=== PATIENT | female | born 1940 | race Two or more races ===

== ENCOUNTER → 2018-01-21 | Outpatient (CLI) | payer OTHER, MEDICAID | END | disposition home or self-care (01) | LOC: Rad HDHVI 13:09 | PROVIDERS: ATTEND Internal Medicine Cardiovascular Disease | DX: I08.2 Rheumatic disorders of both aortic and tricuspid valves (principal); R06.02 Shortness of breath; Z86.79 Personal history of other diseases of the circulatory system | CPT/HCPCS: 93306 ==

== ENCOUNTER → 2019-04-21 | Outpatient (CLI) | payer OTHER, MEDICAID ==
[~2019-04-21] VITALS: Ht 162.6 cm; Wt 66.2 kg
[~2019-04-21] MED LIST: ADENOSINE 56 MG in GIVE UN-DILUTED 0 ML IV ONE; ADENOSINE 90 MG/30 ML INJ IV ONE
== END | disposition home or self-care (01) ==
LOC: Rad HDHVI 13:40
PROVIDERS: ATTEND Internal Medicine Cardiovascular Disease
DX: I25.10 Atherosclerotic heart disease of native coronary artery without angina pectoris (principal); I10 Essential (primary) hypertension
CPT/HCPCS: 78452; 93005; 96374; 96375; A9500; J0153

== ENCOUNTER → 2019-04-26 | Outpatient (CLI) | payer OTHER, MEDICAID | END | disposition home or self-care (01) | LOC: Rad HDHVI 08:17 | PROVIDERS: ATTEND Internal Medicine Cardiovascular Disease | DX: I08.3 Combined rheumatic disorders of mitral, aortic and tricuspid valves (principal); I48.91 Unspecified atrial fibrillation; R06.02 Shortness of breath | CPT/HCPCS: 93306; 93880 ==

== ENCOUNTER → 2020-12-04 | Outpatient (CLI) | payer OTHER, MEDICAID | END | disposition home or self-care (01) | LOC: Rad HDHVI 16:01 | PROVIDERS: ATTEND Internal Medicine Cardiovascular Disease | DX: R07.89 Other chest pain (principal); R06.02 Shortness of breath | CPT/HCPCS: 93306 ==

== ENCOUNTER → 2020-12-10 | Outpatient (CLI) | payer OTHER, MEDICAID ==
[~2020-12-10] VITALS: Ht 162.6 cm; Wt 68.0 kg
[~2020-12-10] MED LIST changes: -ADENOSINE 56 MG in GIVE UN-DILUTED 0 ML IV ONE; +ADENOSINE 57 MG in GIVE UN-DILUTED 0 ML IV ONE
== END | disposition home or self-care (01) ==
LOC: Rad HDHVI 08:21
PROVIDERS: ATTEND Internal Medicine Cardiovascular Disease
DX: I10 Essential (primary) hypertension (principal); J44.9 Chronic obstructive pulmonary disease, unspecified; R07.89 Other chest pain; Z82.49 Family history of ischemic heart disease and other diseases of the circulatory system
CPT/HCPCS: 78452; 93005; 96374; 96375; A9500; J0153

== ENCOUNTER 2025-07-13 20:08 | Emergency (ER) | payer OTHER, MEDICAID ==
[~2025-07-13] VITALS: Ht 162.6 cm; Wt 65.8 kg
--- NOTE | 2025-07-13 20:32 | ED.PDOC ---
HPI Comments 85-year-old male who came to ER for chest pains. Patient has history of hypertension, takes amlodipine 2.5 mg. About 1-1/2 hours ago, while relaxing at home, she developed midsternal chest pains, unprovoked, nonradiating, worse with deep breathing and movements. Patient denies any prior history of chest pains. Has no tearing chest discomfort. No recent fever, cough. Patient with a [facility], but was advised to go to the ER for further evaluation and management. 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 Hx Family History Family History: Reviewed,noncontributory to illness Social History Smoker: Non-Smoker Alcohol: Denies ETOH Use Drugs: Denies Drug Use Lives In: Home Constitutional: denies: chills, diaphoresis, fatigue, fever, malaise, sweats, weakness, others EENTM: denies: blurred vision, double vision, ear bleeding, ear discharge, ear drainage, ear pain, ear ringing, eye pain, eye redness, hearing loss, mouth pain, mouth swelling, nasal discharge, nose bleeding, nose congestion, nose pain, photophobia, tearing, throat pain, throat swelling, voice changes, others Respiratory: denies: cough, hemoptysis, orthopnea, SOB at rest, shortness of breath, SOB with excertion, stridor, wheezing, others Cardiovascular: reports: chest pain; denies: dizzy spells, diaphoresis, Dyspnea on exertion, edema, irregular heart beat, left arm pain, lightheadedness, pal pitations, PND, syncope, others Gastrointestinal: denies: abdomen distended, abdominal pain, blood streaked bowels, constipated, diarrhea, dysphagia, difficulty swallowing, hematemesis, melena, nausea, poor appetite, poor fluid intake, rectal bleeding, rectal pain, vomiting, others Genitourinary: denies: abnormal vagina bleeding, burning, dyspareunia, dysuria, flank pain, frequency, hematuria, incontinence, pain, , vagina discharge, urgency, others Neurological: denies: dizziness, fainting, headache, left sided numbness, left sided weakness, numbness, paresthesia, pre-existing deficit, right sided numbness, right sided weakness, seizure, speech problems, tingling, tremors, weakness, others Musculoskeletal: denies: back pain, gout, joint pain, joint swelling, muscle pain, muscle stiffness, neck pain, others Integumetry: denies: bruises, change in color, change in hair/nails, dryness, laceration, lesions, lumps, rash, wounds, others Allergic/Immunocompromised: denies: Difficulty Healing, Frequent Infections, Hives, Itching, others Hematologic/Lymphatic: denies: anemia, blood clots, easy bleeding, easy b ruising, swollen glands, others Endocrine: denies: excessive hunger, excessive sweating, excessive thirst, excessive urination, flushing, intolerance to cold, intolerance to heat, unexplained weight gain, unexplained weight loss, others Psychiatric: denies: anxiety, bipolar disorder, depression, hopeless, panic disorder, schizophrenia, sleepless, suicidal, others Physical Exam General Appearance: No Apparent Distress, Normal HEENT: Normal ENT Inspection, Pharynx Normal, TMs Normal Neck: Full Range of Motion, Non-Tender, Normal, Normal Inspection Respiratory: Chest Non-Tender, Lungs Clear, No Accessory Muscle Use, No Respiratory Distress, Normal Breath Sounds Cardiovascular: No Edema, No JVD, No Murmur, No Gallop, Normal Peripheral Pulses, Regular Rate/Rhythm Breast Exam: Deferred Gastrointestinal: No Organomegaly, Non Tender, No Pulsatile Mass, Normal Bowel Sounds, Soft Genitalia: Deferred Pelvic: Deferred Rectal: Deferred Extremities: No calf tenderness, Normal capillary refill, Normal inspection, Normal range of motion, Non-tender, No pedal edema Musculoskeletal : Apperance: Normal Neurologic: Alert, appointment specialist II-XII nml as Tested, No Motor Deficits, Normal Affect, Normal Mood, No Sensory Deficits Cerebellar Function: Normal Reflexes: Normal Skin: Dry, Normal Color, Warm Lymphatic: No Adenopathy EKG EKG : Pulse Rate (adult): 86 [place]: Normal Cardiac Rhythm: NSR Block: None Hypertrophy: LVH, None Comments no ST changes, +TWI in I, aVL Was a procedure done? Was a procedure done?: No CP Differential Dx Differential Diagnosis: Angina, Heart Failure, VA, PVC's Differential Diagnosis: CHF Differential Diagnosis: Angina, Chest Wall Pain, Costochondritis, Esophageal reflux/spasm, Gastritis, Myocardial Infarction X-Ray, Labs, Meds, VS Vital Signs Date Time Temp Pulse Resp B/P (MAP) Pulse Ox O2 Delivery O2 Flow Rate FiO2 07/13/25 23:02 98.5 79 16 140/94 (109) 97 98.5 07/13/25 22:04 86 07/13/25 20:11 97.3 91 18 167/102 97 97.3 Lab Test 07/13/25 23:22 07/13/25 21:26 07/13/25 20:24 Range/Units Troponin I High Sensitivity 98 *H 87 *H 82 *H </=34 ng/L White Blood Count 5.3 4.4-10.8 10^3/uL Red Blood Count 4.17 4.0-5.20 10^6/uL Hemoglobin 12.1 L 12.2-16.2 g/dL Hematocrit 37.0 36.0-46.0 % Mean Corpuscular Volume 88.8 80.0-100.0 fL Mean Corpuscular Hemoglobin 29.0 28.0-32.0 pg Mean Corpuscular Hemoglobin Concent 32.7 32.0-36.0 g/dL Red Cell Distribution Width 14.5 H 11.8-14.3 % Platelet Count 283 140-450 10^3/uL Mean Platelet Volume 7.5 6.9-10.8 fL Neutrophils (%) (Auto) 58.6 37.0-80.0 % Lymphocytes (%) (Auto) 29.8 10.0-50.0 % Monocytes (%) (Auto) 7.7 0.0-12.0 % Eosinophils (%) (Auto) 3.1 0.0-7.0 % Basophils (%) (Auto) 0.8 0.0-2.0 % Neutrophils # (Auto) 3.1 1.6-8.6 10 ^3/uL Lymphocytes # (Auto) 1.6 0.4-5.4 10 ^3/uL Monocytes # (Auto) 0.4 0-1.3 10 ^3/uL Eosinophils # (Auto) 0.2 0-0.8 10 ^3/uL Basophils # (Auto) 0 0-0.2 10 ^3/uL Nucleated Red Blood Cells 0.1 % Sodium Level 144 136-145 mmol/L Potassium Level 4.0 3.5-5.1 mmol/L Chloride Level 107 98-107 mmol/L Carbon Dioxide Level 29 20-31 mmol/L Anion Gap 8 5-15 Blood Urea Nitrogen 22 9-23 mg/dL Creatinine 1.18 H 0.550-1.02 mg/dL Glomerular Filtration Rate Calc 45 >90 mL/min BUN/Creatinine Ratio 18.6 10.0-20.0 Serum Glucose 100 74-106 mg/dL Calcium Level 10.3 8.7-10.4 mg/dL B-Type Natriuretic Peptide 33.59 0-100 pg/mL Current Medications Medications (Trade) Dose Ordered Sig/Favio Route Start Time Stop Time Status Last Admin Aspirin 325 mg ONCE ONCE PO 07/13/25 21:30 07/13/25 21:31 DC 07/13/25 23:23 Atorvastatin Calcium (Lipitor) 80 mg ONCE ONCE PO 07/13/25 21:30 07/13/25 21:31 DC 07/13/25 23:23 EXAM: XY CHEST PORTABLE HISTORY: CP TECHNIQUE: 1 view of the chest COMPARISON: None FINDINGS/IMPRESSION: LUNGS: No pleural effusion, consolidation, or pneumothorax. possible peripheral interstitial edema versus crowding of bronchovascular markings MEDIASTINUM: Mildly prominent aortic arch which may be seen in the setting of hypertension question mild prominence of the left main pulmonary artery. Correlate for pulmonary hypertension BONES: No acute osseous abnormality. OTHER: None. Time of 1ST Reevaluation: 20:28 Reevaluation 1ST: Unchanged Patient Education/Counseling: Diagnosis, Treatment Family Education/Counseling: No Family Present SEPSIS Sepsis Screen Date sepsis recognized/suspect: Jul 13, 2025 Time Sepsis recognized/suspect: 2010 Recent Procedure: No On Antibiotic Therapy: No Respiratory Rate >20: No Heart Rate >90: No Temp<36 C (96.8 F) or >38.3 C: No SBP <90 or MAP <65 mmHG: No New Acute Mental Status Change: No Is the patient on CPAP, BIPAP,: No Physician Orders Chest Portable (07/13/25 20:15) Electrocardigram (07/13/25 20:15) Electrocardigram (07/13/25 21:15) Electrocardigram (07/13/25 23:15) Ct Angio Chest Contrast (07/13/25 20:27) Imaging Transfer Request (07/13/25 23:32) Vital Signs Date Time Temp Pulse Resp B/P (MAP) Pulse Ox O2 Delivery O2 Flow Rate FiO2 07/13/25 23:02 98.5 79 16 140/94 (109) 97 98.5 07/13/25 22:04 86 07/13/25 20:11 97.3 91 18 167/102 97 97.3 Laboratory Tests Test 07/13/25 20:24 White Blood Count 5.3 10^3/uL (4.4-10.8) Medications Medications Dose Ordered Sig/Favio Route Start Time Stop Time Status Last Admin Dose Admin Aspirin 325 mg ONCE ONCE PO 07/13/25 21:30 07/13/25 21:31 DC 07/13/25 23:23 Atorvastatin Calcium 80 mg ONCE ONCE PO 07/13/25 21:30 07/13/25 21:31 DC 07/13/25 23:23 Departure 1 Departure Time of Disposition: 22:01 (85-year-old female presenting for pleuritic chest discomfort which started shortly before arrival. Patient denies any tearing chest pain, has no widened mediastinum on on chest x-ray, does not have critical ly elevated blood pressure, not concerning for aortic aneurysm, dissection. Given the reports of chest discomfort in this patient who is 85 years old with a history of high blood pressure consider possible ACS. Patient's initial EKG with no signs of acute ischemia, does have some T-wave inversions, high sensitivity troponin is in the 80s. Patient has a heart score of 6. Repeat high sensitivity troponin obtained, stably minimally elevated with no significant rise. Patient was given oral aspirin, Lipitor. Given the reports of pleuritic chest discomfort CT angiography of the chest was ordered to evaluate for PE or other signs of acute cardiopulmonary process. CT with no signs of PE, shows findings of possible viral bronchitis. Given the patient's chest pain with elevated troponin she will be admitted for further workup and management. Patient is a [facility] patient. Discussed the case with Dr. Montejo. Case # [id number]. Patient deemed to be stable for transfer to [facility] for further workup and management of chest pain with elevated troponin this high- risk patient.) Impression: Primary Impression: Chest pain Additional Impressions: Pleuritic chest pain Elevated troponin I level Disposition: 09 ADMITTED INPATIENT Admit to: Tele Condition: Fair Critical Care Note Critical Care Time?: No Stability Stability form required: No Heart Score Heart Score: Heart Score Response (Comments) Value History Moderate Suspicious 1 EKG Normal 0 Age >65 2 Risk Factors 1 or 2 risk factors 1 Troponin >3 x's Normal limit 2 Total 6 I personally scribed for CHARLA CUEVAS MD ([employer] on 07/13/25 at 20:32. Electronically submitted by Yasir Amaya ([employer]). I personally scribed for CHARLA CUEVAS MD ([employer]) on 07/13/25 at 21:42. Electronically submitted by Yasir Amaya ([employer]). CHARLA CUEVAS MD Jul 13, 2025 20:32
[2025-07-13 20:41] LABS: Hematocrit 37.0 % (36.0-46.0); Hemoglobin 12.1 g/dL (12.2-16.2); Mean Corpuscular Hemoglobin 29.0 pg (28.0-32.0); Mean Corpuscular Volume 88.8 fL (80.0-100.0); Nucleated Red Blood Cells % 0.1 %
[2025-07-13 20:53] LABS: Anion Gap 8 (5-15); Carbon Dioxide 29 mmol/L (20-31); Chloride 107 mmol/L (98-107); Potassium 4.0 mmol/L (3.5-5.1); Sodium 144 mmol/L (136-145)
[2025-07-13 20:54] LABS: Calcium 10.3 mg/dL (8.7-10.4)
[2025-07-13 20:59] LABS: BUN/Creatinine Ratio 18.6 (10.0-20.0); Blood Urea Nitrogen 22 mg/dL (9-23); Glucose 100 mg/dL (74-106)
--- NOTE | 2025-07-13 21:09 | DVH ---
EXAM: XY CHEST PORTABLE HISTORY: CP TECHNIQUE: 1 view of the chest COMPARISON: None FINDINGS/IMPRESSION: LUNGS: No pleural effusion, consolidation, or pneumothorax. possible peripheral interstitial edema versus crowding of bronchovascular markings MEDIASTINUM: Mildly prominent aortic arch which may be seen in the setting of hypertension question mild prominence of the left main pulmonary artery. Correlate for pulmonary hypertension BONES: No acute osseous abnormality. OTHER: None.
--- NOTE | 2025-07-13 22:46 | DVH ---
CLINICAL HISTORY: midsternal chest pain, SOB, eval for PE TECHNIQUE: CT Angiogram of the chest was performed with contrast intravenously. 3D MIP reconstructed images were created and archived on the PACS system. This exam was performed according to our departmental dose optimization program. Up-to-date CT equipment and radiation dose reduction techniques are utilized as appropriate. WID: COMPARISON: XY CHEST PORTABLE on DOS: 07/13/25 FINDINGS: Lungs: There is diffuse bronchial wall thickening. No consolidation. Cardiac: Right atrial chamber measures 5 cm. Left atrial chamber measures 4 cm. There is mitral annular calcification. There is 3-vessel coronary artery calcium. Vascular: 3-vessel aortic arch. Thoracic aorta is normal in caliber. No pulmonary emboli. Lymph nodes: unremarkable Thoracic inlet: unremarkable Bones: unremarkable Upper Abdomen: Status post cholecystectomy. IMPRESSION: No pulmonary emboli Bronchial wall thickening, nonspecific, but can be seen with viral bronchitis versus chronic large airways disease /asthma. Biatrial chamber enlargement
[2025-07-13] MEDS: IOHEXOL 350 MG/ML 100ML IJ ONE (23:17)
[2025-07-13] MEDS: ATORVASTATIN 20 MG TAB PO ONE (23:23)
[2025-07-14 02:53] VITALS: BP 153/95; PULSE 76; RESP 16; TEMP 98.5; O2SAT 96
--- NOTE | 2025-07-14 10:11 | ECG ---
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
== END 2025-07-14 02:55 | disposition short-term general hospital (02) ==
LOC: ER 20:08
DX: R07.2 Precordial pain (principal); R79.89 Other specified abnormal findings of blood chemistry; I10 Essential (primary) hypertension
CPT/HCPCS: 36415; 71045; 71275; 80048; 83880; 84484; 85025; 93005; 99285; Q9967